=== PATIENT | female | born 1965 | race Caucasian/White ===

== ENCOUNTER 2024-10-20 10:21 | Emergency (ER) | payer MEDICAID ==
[~2024-10-20] VITALS: Ht 154.9 cm; Wt 92.9 kg
[2024-10-20 10:46] VITALS: BP 152/97; PULSE 78; RESP 16; TEMP 98.5; O2SAT 99
== END 2024-10-20 15:32 | disposition home or self-care (01) ==
LOC: ER 10:21
DX: U07.1 COVID-19 (principal); B34.9 Viral infection, unspecified; E78.00 Pure hypercholesterolemia, unspecified; I10 Essential (primary) hypertension; Z88.0 Allergy status to penicillin; Z98.890 Other specified postprocedural states
CPT/HCPCS: 71045; 87426; 87804; 99284

== ENCOUNTER 2025-06-26 12:49 | Emergency (ER) | payer MEDICAID ==
[~2025-06-26] VITALS: Ht 154.9 cm; Wt 94.0 kg
[2025-06-26 13:04] VITALS: TEMP 36.7; O2SAT 99
[2025-06-26] MEDS: LIDOCAINE 5% PATCH TOP STA (15:08)
[2025-06-26] MEDS: IBUPROFEN 600MG TABLET PO ONE (15:15)
[2025-06-26] MEDS ORDERED: IBUP-1455 MT (17:19)
[2025-06-26 17:32] VITALS: BP 134/87; PULSE 89; RESP 16; O2SAT 100
== END 2025-06-26 17:35 | disposition home or self-care (01) ==
LOC: ER 12:49
DX: R60.0 Localized edema (principal); I10 Essential (primary) hypertension; E78.00 Pure hypercholesterolemia, unspecified; Z88.0 Allergy status to penicillin
CPT/HCPCS: 73650; 99283